=== PATIENT | male | born 2000 | race Caucasian/White ===

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

== ENCOUNTER 2018-05-22 12:23 | Emergency (ER) | payer OTHER ==
[2018-05-22] MEDS: NS 1,000 ML IV (13:10)
[2018-05-22 13:12] LABS: BASO # 0.1 10^3/uL (0.0-0.2); BASO % 0.6 % (0.0-1.0); EOS % 0.2 % (0.0-3.0); HEMATOCRIT 46.2 % (42.0-52.0); HEMOGLOBIN 15.9 g/dl (13.5-17.5); IMMATURE GRANULOCYTE % 0.4 % (0-3.0); LYMPH # 1.3 10^3/uL (1.5-6.5); LYMPH % 12.8 % (24.0-44.0); MEAN CORPUSCULAR HEMOGLOBIN 29.4 pg (27.0-33.0); MEAN CORPUSCULAR HGB CONC 34.4 g/dl (32.0-36.5); MEAN CORPUSCULAR VOLUME 85.4 fl (80.0-96.0); MONO # 0.7 10^3/uL (0.0-0.8); NEUTROPHILS # 7.9 10^3/uL (1.8-7.7); PLATELET COUNT, AUTOMATED 198 10^3/uL (150-450); RED BLOOD COUNT 5.41 10^6/uL (4.30-6.10); RED CELL DISTRIBUTION WIDTH 12.1 % (11.5-14.5)
[2018-05-22 13:29] LABS: ALBUMIN 4.2 GM/DL (3.2-5.2); ALBUMIN/GLOBULIN RATIO 1.17 (1.00-1.93); ALKALINE PHOSPHATASE 98 U/L (45-117); ALT/SGPT 31 U/L (12-78); ANION GAP 9 MEQ/L (8-16); AST/SGOT 22 U/L (7-37); BILIRUBIN,DIRECT 0.1 MG/DL (0.0-0.2); BILIRUBIN,TOTAL 0.5 MG/DL (0.2-1.0); BLOOD UREA NITROGEN 16 MG/DL (7-18); CALCIUM LEVEL 8.9 MG/DL (8.5-10.1); CARBON DIOXIDE LEVEL 27 MEQ/L (21-32); CHLORIDE LEVEL 108 MEQ/L (98-107); CPK CREATINE PHOSPHOKINASE 209 U/L (39-308); CREATININE FOR GFR 1.55 MG/DL (0.70-1.30); GLUCOSE, FASTING 105 MG/DL (70-100); LIPASE 131 U/L (73-393); SODIUM LEVEL 144 MEQ/L (136-145); TOTAL PROTEIN 7.8 GM/DL (6.4-8.2)
== END 2018-05-22 15:24 | disposition home or self-care (01) ==
LOC: M ED 12:23
DX: F10.10 Alcohol abuse, uncomplicated (principal); E86.0 Dehydration; R11.2 Nausea with vomiting, unspecified; F17.210 Nicotine dependence, cigarettes, uncomplicated; Z88.5 Allergy status to narcotic agent
CPT/HCPCS: 82550

== ENCOUNTER 2018-06-19 12:38 | Day surgery (SDC) | payer OTHER ==
[~2018-06-19] VITALS: Ht 172.7 cm; Wt 64.6 kg
[2018-06-19] MEDS ORDERED: METOCLOPRAMIDE INJ 10MG/2ML VIAL (J2765) IV ONE (13:30)
[2018-06-19] MEDS ORDERED: DICYCLOMINE INJ 20MG/2ML (J0500) IM ONE (13:30)
[2018-06-19] MEDS ORDERED: NS 1,000 ML IV ONE (13:30)
[2018-06-19 14:02] LABS: BASO # 0.1 10^3/uL (0.0-0.2); BASO % 0.6 % (0.0-1.0); EOS % 0.1 % (0.0-3.0); HEMOGLOBIN 13.7 g/dl (13.5-17.5); LYMPH % 16.2 % (24.0-44.0); MEAN CORPUSCULAR HEMOGLOBIN 28.9 pg (27.0-33.0); MEAN CORPUSCULAR HGB CONC 35.1 g/dl (32.0-36.5); MEAN CORPUSCULAR VOLUME 82.3 fl (80.0-96.0); MONO # 1.1 10^3/uL (0.0-0.8); MONO % 9.1 % (0.0-5.0); NEUTROPHILS # 9.1 10^3/uL (1.8-7.7); NEUTROPHILS % 73.8 % (36.0-66.0); PLATELET COUNT, AUTOMATED 192 10^3/uL (150-450); RED BLOOD COUNT 4.74 10^6/uL (4.30-6.10); WHITE BLOOD COUNT 12.3 10^3/uL (4.0-10.0)
[2018-06-19 14:20] LABS: INR 1.19; PROTHROMBIN TIME 15.3 SECONDS (12.1-14.4)
[2018-06-19 14:21] LABS: PARTIAL THROMBOPLASTIN TIME 37.8 SECONDS (25.4-37.6)
[2018-06-19] MEDS: GASTROGRAFIN SOLUTION 30ML PO SCH ×2 (14:21→14:25)
[2018-06-19 14:25] LABS: ALT/SGPT 67 U/L (12-78); BILIRUBIN,TOTAL 0.8 MG/DL (0.2-1.0); BLOOD UREA NITROGEN 14 MG/DL (7-18); CALCIUM LEVEL 9.1 MG/DL (8.5-10.1); CARBON DIOXIDE LEVEL 25 MEQ/L (21-32); CHLORIDE LEVEL 103 MEQ/L (98-107); CREATININE FOR GFR 1.34 MG/DL (0.70-1.30); ETHYL ALCOHOL (ETHANOL) < 0.003 % (0.000-0.010); GLUCOSE, FASTING 125 MG/DL (70-100); SODIUM LEVEL 137 MEQ/L (136-145); TOTAL PROTEIN 7.6 GM/DL (6.4-8.2)
[2018-06-19 15:16] LABS: APPEARANCE, URINE HAZY (CLEAR); BACTERIA, URINE AUTO NEGATIVE (NEGATIVE); BILIRUBIN, URINE AUTO NEGATIVE (NEGATIVE); BLOOD, URINE BLOOD NEGATIVE (NEGATIVE); COLOR, URINE YELLOW (YELLOW); GLUCOSE, URINE (UA) AUTO NEGATIVE (NEGATIVE); KETONE, URINE AUTO 1+ mg/dL (NEGATIVE); LEUKOCYTE ESTERASE, URINE AUTO NEGATIVE (NEGATIVE); MUCUS, URINE MODERATE (NEGATIVE); NITRITE, URINE AUTO NEGATIVE (NEGATIVE); PROTEIN, URINE AUTO 1+ mg/dL (NEGATIVE); RBC, URINE AUTO 2 /HPF (0-3); SPECIFIC GRAVITY URINE AUTO 1.025 (1.002-1.035); SQUAMOUS EPITHELIAL CELL UR AU 0 /HPF (0-6); WBC, URINE AUTO 2 /HPF (0-3)
[2018-06-19 15:31] LABS: AMPHETAMINES LEVEL URINE NEGATIVE (NEGATIVE); BARBITURATES URINE NEGATIVE (NEGATIVE); BENZODIAZEPINES URINE NEGATIVE (NEGATIVE); CANNABINOIDS URINE NEGATIVE (NEGATIVE); COCAINE METABOLITE URINE NEGATIVE (NEGATIVE); METHADONE URINE NEGATIVE (NEGATIVE); OPIATES URINE NEGATIVE (NEGATIVE); PHENCYCLIDINE URINE NEGATIVE (NEGATIVE)
[2018-06-19] MEDS ORDERED: ISOVUE-370 76% 100ML VIAL (Q9967) As Ordered ONE (15:34)
--- NOTE | 2018-06-19 16:04 | REP ---
Clinical: Diffuse acute abdominal pain. Technique: Axial contrast enhanced images from the lung bases to the pubic symphysis with oral (per protocol) and 100 ml Isovue 370 intravenous contrast material. Findings: Retrocecal appendix extends cranially towards the inferior tip of the liver and appears fluid-filled and dilated to approximately 11 mm with trace periappendiceal stranding (images 70-90) and is consistent with acute tip appendicitis. Remainder of the small and large bowel is unremarkable. No free air or free fluid/drainable collection. Liver, spleen, pancreas, gallbladder, bilateral adrenal glands and kidneys are normal. Pelvis demonstrates normal bladder and age appropriate prostate/seminal vesicles. Abdominal aorta without aneurysm. Musculoskeletal structures are intact. Lung bases are clear. Impression: Acute tip appendicitis. No associated bowel obstruction, perforation, ascites or drainable collection/abscess. Electronically Signed by Edmund Lyn MD 06/19/2018 03:56 P
[2018-06-19] MEDS ORDERED: PIPERACILLIN/TAZOBACTAM SOD 3.375 GM in D5W MINI-BAG PLUS 50 ML IV ONE (16:30)
[2018-06-19] MEDS ORDERED: ACETAMINOPHEN TAB 650MG DOSE (2X325MG) PO PRN (16:45)
[2018-06-19] MEDS ORDERED: ONDANSETRON 4MG/2ML VIAL (J2405) IV PRN ×2 (16:45→21:15)
[2018-06-19] MEDS ORDERED: KETOROLAC 30 MG/ML VIAL (J1885) IV PRN (16:45)
[2018-06-19] MEDS ORDERED: ZOSYN 3.375 GM VIAL (J2543) As Ordered ONE (17:06)
[2018-06-19] MEDS: LR 1,000 ML IV SCH (18:13)
[2018-06-19] MEDS ORDERED: BUPIVACAINE/EPIN 0.25% 30 ML VIAL As Ordered ONE (18:56)
[2018-06-19] MEDS ORDERED: KETOROLAC 60 MG/2 ML VIAL (J1885) As Ordered ONE (19:39)
[2018-06-19] MEDS ORDERED: METOCLOPRAMIDE INJ 10MG/2ML VIAL (J2765) As Ordered ONE (19:39)
[2018-06-19] MEDS ORDERED: SUCCINYLCHOLINE 100 MG/5 ML SYRINGE (J0330) As Ordered ONE (19:40)
[2018-06-19] MEDS ORDERED: fentaNYL 100 MCG/2 ML INJECTION (J3010) As Ordered ONE ×2 (19:40→19:42)
[2018-06-19] MEDS ORDERED: ROCURONIUM BROMIDE 50 MG/5 ML VIAL As Ordered ONE (19:40)
[2018-06-19] MEDS ORDERED: dexameTHASONE 4 MG/ML 1ML VIAL (J1100) As Ordered ONE (19:40)
[2018-06-19] MEDS ORDERED: MIDAZOLAM INJ 2 MG/2 ML VIAL (J2250) As Ordered ONE (19:40)
[2018-06-19] MEDS ORDERED: LIDOCAINE 2% INJ 100 MG/5 ML SDV (FOR ANES.) As Ordered ONE (19:40)
[2018-06-19] MEDS ORDERED: PROPOFOL 200 MG/20 ML VIAL As Ordered ONE (19:40)
[2018-06-19] MEDS ORDERED: ONDANSETRON 4MG/2ML VIAL (J2405) As Ordered ONE (19:40)
[2018-06-19] MEDS ORDERED: SUGAMMADEX SODIUM 500 MG/5 ML VIAL (BRIDION) As Ordered ONE (19:47)
[2018-06-19] MEDS ORDERED: diphenhydrAMINE INJ 50MG/ML VIAL (J1200) As Ordered ONE (19:48)
[2018-06-19] MEDS ORDERED: PERCOCET 5MG/325MG TAB As Ordered ONE (20:42)
[2018-06-19 21:15] VITALS: BP 94/60
[2018-06-19] MEDS ORDERED: PERCOCET 5MG/325MG TAB PO PRN (21:15)
[2018-06-19] MEDS ORDERED: METOCLOPRAMIDE INJ 10MG/2ML VIAL (J2765) IV PRN (21:15)
[2018-06-19] MEDS ORDERED: fentaNYL 100 MCG/2 ML INJECTION (J3010) IV PRN (21:15)
[2018-06-19] MEDS ORDERED: LR 1,000 ML IV SCH (21:15)
[2018-06-19] MEDS: SENOKOT S TAB PO SCH (21:30)
[2018-06-19 21:45] VITALS: BP 92/62
[2018-06-19 22:45] VITALS: BP 96/60
[2018-06-19] MEDS: AMPICILLIN SOD/SULBACTAM SOD 3 GM in D5W MINI-BAG PLUS 100 ML IV SCH (23:06)
[2018-06-19 23:45] VITALS: BP 92/60
[2018-06-20] MEDS: NORCO, ANEXSIA 5/325MG TABLET (HYDROcodone/ACETAMINOPHEN) PO PRN ×2 (00:20→08:12)
[2018-06-20 00:45] VITALS: BP 94/64
[2018-06-20 01:45] VITALS: BP 90/60
[2018-06-20] MEDS ORDERED: KETOROLAC 30 MG/ML VIAL (J1885) IV PRN (02:00)
[2018-06-20] MEDS: AMPICILLIN SOD/SULBACTAM SOD 3 GM in D5W MINI-BAG PLUS 100 ML IV SCH (04:46)
[2018-06-20] MEDS: LR 1,000 ML IV SCH ×2 (04:46→07:15)
[2018-06-20 05:27] VITALS: BP 90/62
[2018-06-20 06:29] LABS: HEMATOCRIT 30.9 % (42.0-52.0); MEAN CORPUSCULAR HEMOGLOBIN 28.9 pg (27.0-33.0); MEAN CORPUSCULAR HGB CONC 35.3 g/dl (32.0-36.5); PLATELET COUNT, AUTOMATED 146 10^3/uL (150-450); RED BLOOD COUNT 3.77 10^6/uL (4.30-6.10); WHITE BLOOD COUNT 9.3 10^3/uL (4.0-10.0)
[2018-06-20 06:56] LABS: HEMOGLOBIN 10.9 g/dl (13.5-17.5)
[2018-06-20] MEDS: SENOKOT S TAB PO SCH (08:12)
[2018-06-20] MEDS ORDERED: NORCOTAB PO (08:36)
--- NOTE | 2018-06-20 10:08 | HPE ---
DATE OF ADMISSION: 06/19/2018 CHIEF COMPLAINT: Right lower quadrant pain. HISTORY OF PRESENT ILLNESS: The patient is a 17-year-old male who developed right lower quadrant abdominal pain that developed suddenly this morning, it has been getting progressively worse. He has had loss by appetite, nausea. No recent trauma to the area. No recent travel and no recent sick contacts or illness himself. No previous pains like this in the past. In the emergency room (ER) he had elevated white count, fever 101.6, as well as a CT scan findings. PAST MEDICAL HISTORY: Pilonidal cyst. PAST SURGICAL HISTORY: Pilonidal cystectomy times six. ALLERGIES: MORPHINE. HOME MEDICATIONS: None. SOCIAL HISTORY: Previous smoker, quit recently. No current drug, alcohol, tobacco abuse. FAMILY HISTORY: Noncontributory. REVIEW OF SYSTEMS: Pertinent positives and negative as stated in history of present illness. PHYSICAL EXAMINATION: GENERAL: Alert and oriented times three. No acute distress. VITALS: Temperature 101.6, pulse 115, respirations 18, blood pressure 117/72, pulse ox 100% on room air. HEENT: Pupils equal round react to light and accommodation. HEART: S1, S2, regular rate and rhythm. LUNGS: Clear to auscultation bilaterally. ABDOMEN: Soft, tender to palpation right lower quadrant. No rebound tenderness. Localized guarding in the right lower quadrant only. EXTREMITIES: No clubbing, cyanosis or edema. LABORATORY DATA: White count 12.3, hemoglobin 13.7, platelets 192, potassium 4, creatinine 1.34. IMAGING: CT abdomen and pelvis shows acute tip appendicitis with a dilation up to 11 mm. ASSESSMENT AND PLAN: The patient is a 17-year-old male with signs and symptoms consistent with acute appendicitis. Recommendation was for laparoscopic possible open appendectomy. Risks and procedure were not limited but including bleeding, infection, hernia formation, damage to surrounding structures were discussed in detail with the patient and informed consent was obtained and procedure was planned. Postoperatively he will be kept overnight until he is afebrile for 24 hours and his white count becomes stable, once that occurs we will plan for discharge home.
--- NOTE | 2018-06-20 14:37 | RO ---
DATE OF PROCEDURE: 06/19/2018 PREOPERATIVE DIAGNOSIS: Acute appendicitis. POSTOPERATIVE DIAGNOSIS: Acute appendicitis. PROCEDURE: Laparoscopic appendectomy. SURGEON: Dr. Klein FINAL INSTALLER INSPECTOR: None. ANESTHESIA: General. ESTIMATED BLOOD LOSS: 5. COMPLICATIONS: None. INDICATIONS FOR PROCEDURE: The patient is a 17-year-old male who presents with right lower quadrant abdominal pain found have acute appendicitis on CT scan. Recommendation for laparoscopic possible open appendectomy. Risks, benefits procedure not limited but including bleeding, infection, hernia formation, damage to surrounding structure need further surgery discussed in detail with the patient informed was obtained procedure was planned. PROCEDURE: The patient brought back to operating room 2. After sufficient sedation the abdomen was sterilely prepped and draped. Next a time-out was done to confirm proper patient and proper procedure. Following that a 5 mm incision made in left upper quadrant, Veress needle was inserted and the abdomen was the insufflated 15 mmHg. Next the Veress needle was removed 5 mm port was used to gain access to the abdomen. The abdomen was then entered an 8 mm port was placed supraumbilical in the midline and 5 mm port suprapubic in the midline. The cecum was identified with a retrocecal appendix. The appendix was also retroperitoneal. I was able to dissect through the peritoneum overlying the appendix close to the base of the cecum and follow it distally all way to the tip that was severely inflamed. Once this was completed, I was able to then go back through the mesoappendix towards the base of the cecum. Once the base was reached it was ligated with two PDS Endoloops and then amputated using Enseal, brought out through the supraumbilical port site in a 5 mm EndoCatch bag. Abdomen was examined to confirm hemostasis. The abdomen was then desufflated. Skin incisions were closed #4-0 Vicryl subcuticular sutures. The abdomen was cleaned and dried. Steri-Strips, 4x4, and tape were applied thus ending procedure.
--- NOTE | 2018-06-22 19:03 | DSES ---
DATE OF ADMISSION: 06/19/2018 DATE OF DISCHARGE: 06/20/2018 ADMISSION DIAGNOSIS: Acute appendectomy. DISCHARGE DIAGNOSIS: Acute appendectomy. HOSPITAL COURSE: The patient is a 17-year-old male who came in with acute appendicitis. He brought to operating room on June 19 for a laparoscopic appendectomy. Postoperatively, he is doing well, tolerating diet. His white count this morning has returned back to normal. He has been afebrile overnight, and his pain has resolved. Plan is to discharge home this morning with [place] for pain. He has a note for work. No lifting, pushing, pulling more 20 pounds for 2 weeks. No baths for 5 days, and he can start showering tonight. All of his questions were answered. He will be discharged home this morning.
== END 2018-06-20 10:10 | disposition home or self-care (01) ==
LOC: M ED 12:38 → M SDC 16:42 → M MS4PR 21:10 → M SDC 06-20 10:10
PROVIDERS: ATTEND Surgery
DX: K35.890 Other acute appendicitis without perforation or gangrene (principal); F17.210 Nicotine dependence, cigarettes, uncomplicated
CPT/HCPCS: 36415; 44970; 74177; 80053; 80307; 81001; 85025; 85027; 85610; 85730; 86850; 86900; 86901; 88304; 96372; 96374; 96375; 96376; 99284; G0480; J0330; J0500; J1100; J1200; J1885; J2250; J2405; J2543; J2765; J3010; Q9963; Q9967

== ENCOUNTER 2019-05-22 21:40 | Emergency (ER) | payer OTHER ==
[~2019-05-22] VITALS: Ht 172.7 cm; Wt 72.7 kg
[2019-05-22 21:40] VITALS: BP 133/92
[~2019-05-22 21:40] MED LIST: HYDR-3715 PO
[2019-05-22] MEDS ORDERED: BACT800T5 PO (22:07)
[2019-05-22] MEDS ORDERED: BACTRIM 160MG/800MG DS TAB PO ONE (22:15)
== END 2019-05-22 22:18 | disposition home or self-care (01) ==
LOC: M ED 21:40
DX: L02.31 Cutaneous abscess of buttock (principal); F17.218 Nicotine dependence, cigarettes, with other nicotine-induced disorders; Z88.5 Allergy status to narcotic agent